=== PATIENT | male | born 1960 | race Caucasian/White ===

== ENCOUNTER 2024-02-18 11:03 | Emergency (ER) | payer OTHER ==
[~2024-02-18] VITALS: Ht 172.7 cm; Wt 77.1 kg
[2024-02-18] MEDS ORDERED: Lidocaine 2% Jelly Uro-Jet UR ONE (11:25)
[2024-02-18 12:01] LABS: Source, Urine Clean Catch
[2024-02-18 12:03] LABS: Appearance, Urine Clear (Clear); Bilirubin, Urine Neg (Neg); Blood, Urine Neg (Neg); Color, Urine Yellow (P-Yellow); Glucose Qualitative, Urine Neg (Neg); Ketones, Urine Neg (Neg); Leukocyte Esterase, Urine Neg (Neg); Nitrite, Urine Neg (Neg); Protein, Urine Neg (Neg); Urobilinogen, Urine NORM (Normal)
[2024-02-18] MEDS ORDERED: TAMS.4ER PO (12:30)
[2024-02-18] MEDS ORDERED: METF500 PO (12:30)
[2024-02-18] MEDS ORDERED: ATORVASTATIN CA40 M1 PO (12:31)
== END 2024-02-18 13:05 | disposition home or self-care (01) ==
LOC: ER 11:03
PROVIDERS: Physician Assistant
DX: R33.9 Retention of urine, unspecified (principal); Z79.899 Other long term (current) drug therapy; Z79.84 Long term (current) use of oral hypoglycemic drugs
CPT/HCPCS: 51702; 51798; 81003; 99283-25